=== PATIENT | male | born 1940 | race Caucasian/White ===

== ENCOUNTER 2017-08-14 08:54 | Emergency (ER) | payer MEDICARE, OTHER ==
--- NOTE | 2017-08-14 09:31 | PHYS DOC ---
Past History Past Medical History: No Pertinent History Alcohol Use: Heavy Additional Alcohol Information: Pt reports he has a few drinks daily of schnapps Drug Use: None Adult General Chief Complaint Chief Complaint: HIP PAIN [facility] HPI 68-year-old male presents with left buttocks pain. This pain has come on the last 3 days and has been progressive over that time. He did not have any initial trauma, fall, overuse, or anything else that he can identify as a cause. [place] event. He has not been walking more than usual. The pain is a sharp, severe pain in the central buttocks. He came in today is concerned that is getting worse. The pain was bad enough that he almost fell today while walking. He has never had hip pain in the past. He denies fever, chills, nausea, vomiting, diarrhea, constipation. He has no other complaints. Review of Systems Review of Systems Constitutional: Denies fever or chills [] Eyes: Denies change in visual acuity, redness, or eye pain [] HENT: Denies nasal congestion or sore throat [] Respiratory: Denies cough or shortness of breath [] Cardiovascular: No additional information not addressed in HPI [] GI: Denies abdominal pain, nausea, vomiting, bloody stools or diarrhea [] : Denies dysuria or hematuria [] Musculoskeletal: Left hip pain[] Integument: Denies rash or skin lesions [] Neurologic: Denies headache, focal weakness or sensory changes [] Endocrine: Denies polyuria or polydipsia [] All other systems were reviewed and found to be within normal limits, except as documented in this note. Allergies Allergies Allergies Coded Allergies Type Severity Reaction Last Updated Verified No Known Drug Allergies 08/14/17 No Physical Exam Physical Exam Constitutional: Well developed, well nourished, no acute distress, non-toxic appearance. [] HENT: Normocephalic, atraumatic, bilateral external ears normal, oropharynx moist, no oral exudates, nose normal. [] Eyes: PERRLA, EOMI, conjunctiva normal, no discharge. [] Neck: Normal range of motion, no tenderness, supple, no stridor. [] Cardiovascular:Heart rate regular rhythm, no murmur [] Lungs & Thorax: Bilateral breath sounds clear to auscultation [] Abdomen: Bowel sounds normal, soft, no tenderness, no masses, no pulsatile masses. [] Skin: Warm, dry, no erythema, no rash. [] Back: No tenderness, no CVA tenderness. [] Extremities: Pain with palpation of the left piriformis. No pain with hip compression or distraction. No pain with internal and external rotation. Hip joint feels stable.[] Neurologic: Alert and oriented X 3, normal motor function, normal sensory function, no focal deficits noted. [] Psychologic: Affect normal, judgement normal, mood normal. [] Current Patient Data Vital Signs Vital Signs Date Time Temp Pulse Resp B/P (MAP) Pulse Ox O2 Delivery O2 Flow Rate FiO2 08/14/17 09:05 97.7 92 16 94 Room Air EKG EKG [] Radiology/Procedures Radiology/Procedures Left hip 2 views. HISTORY: Left hip pain AP and lateral views were taken of the left hip. There is no fracture or acute osseous abnormality. IMPRESSION: 1. Negative left hip. Electronically signed by: Ander Griffiths MD (08/14/2017 9:51 AM) [facility][] Course & Med Decision Making Course & Med Decision Making Pertinent Labs and Imaging studies reviewed. (See chart for details) The patient's x-rays negative for fracture or acute findings. We will treat the patient with 3 days of prednisone to expedite anti-inflammatory effect. I will also prescribe Flexeril 5 mg for short-term use. I have warned the patient and family about fatigue and other side effects potential from Flexeril. The patient will not drive while taking the medication. Follow up with his PCP when he returns home in a few days. [] Dragon Disclaimer Dragon Disclaimer This electronic medical record was generated, in whole or in part, using a voice recognition dictation system. Departure Departure: Referrals: NON,STAFF (PCP) Scripts Prednisone (PREDNISONE) 50 Mg Tablet 1 TAB PO DAILY for 3 Days, #3 TAB Prov: LOBITO FINNEY DO 08/14/17 Cyclobenzaprine Hcl (CYCLOBENZAPRINE HCL) 5 Mg Tablet 1 TAB PO TID PRN for MUSCLE PAIN for 7 Days, #21 TAB Prov: LOBITO FINNEY DO 08/14/17 LOBITO FINNEY DO August 14, 2017 09:31
--- NOTE | 2017-08-14 09:55 | RAD ---
Left hip 2 views. HISTORY: Left hip pain AP and lateral views were taken of the left hip. There is no fracture or acute osseous abnormality. IMPRESSION: 1. Negative left hip. Electronically signed by: Ander Griffiths MD (08/14/2017 9:51 AM) [facility]
[2017-08-14] MEDS ORDERED: CYCL5TAB PO (10:31)
[2017-08-14] MEDS ORDERED: PRED50TA PO (10:31)
[2017-08-14 10:40] VITALS: BP 118/60
== END 2017-08-14 10:42 | disposition home or self-care (01) ==
LOC: ER 08:54
DX: M25.552 Pain in left hip (principal); M54.5 Low back pain; F10.10 Alcohol abuse, uncomplicated
CPT/HCPCS: 73502; 99284